=== PATIENT | female | born 1970 | race Caucasian/White ===

== ENCOUNTER → 2020-11-23 | Outpatient (CLI) | payer OTHER ==
[2020-11-24 11:14] LABS: RHEUMATOID ARTHRITIS FACTOR 10.3 IU/mL (0.0-13.9)
== END ==
LOC: LAB 12:32
PROVIDERS: Nurse Practitioner Family
DX: M25.50 Pain in unspecified joint (principal)
CPT/HCPCS: 36415; 83520; 85652; 86140; 86200; 86431